=== PATIENT | male | born 1970 | race Hispanic/Latino ===

== ENCOUNTER 2023-07-22 13:33 | Observation (INO) | payer OTHER, SELFPAY ==
[2023-07-22 14:15] LABS: #Eosinphils 0.1 thou/uL (0.0-0.7); #Monocytes 0.3 thou/uL (0.11-0.59); %Basophils 0.6 % (0.0-1.0); %Eosinophils 2.5 % (0.0-10.0); %Monocytes 6.8 % (0.0-10.0); %Neutrophils 62.7 % (42.0-75.0); Hematocrit 44.2 % (42.0-52.0); Hemoglobin 15.7 g/dL (14.0-18.0); Mean Corpuscular HGB CONC 35.5 g/dL (32.0-36.0); Mean Corpuscular Hemoglobin 35.2 pg (27.0-31.0); Mean Corpuscular Volume 99.1 fl (78.0-98.0); Mean Platelet Volume 9.9 fL (7.4-10.4); Platelet Count 217 10x3/uL (130-400); RBC Distribution Width 12.8 % (11.5-14.5); Red Blood Cell (RBC) Count 4.46 mill/uL (4.70-6.10); White Blood Cell (WBC) Count 4.8 10x3/uL (4.8-10.8)
[2023-07-22 14:29] LABS: ALT (SGPT) 53 U/L (8-55); AST (SGOT) 37 U/L (5-34); Albumin 4.5 g/dL (3.5-5.0); Alkaline Phosphatase 85 U/L (40-110); Anion Gap 13 mmol/L (10-20); BUN (Urea Nitrogen) 18 mg/dL (8.4-25.7); Bilirubin, Total 0.7 mg/dL (0.2-1.2); Calc. Creatinine Clearance 0 mL/min (70-130); Calcium 9.8 mg/dL (7.8-10.44); Carbon Dioxide 26 mmol/L (22-29); Chloride 105 mmol/L (98-107); Estimated GFR 70; Globulin 3.2 g/dL (2.4-3.5); Glucose 118 mg/dL (70-105); Potassium 4.4 mmol/L (3.5-5.1); Protein, Total 7.7 g/dL (6.0-8.3); Sodium 140 mmol/L (136-145)
[2023-07-22] MEDS ORDERED: Ketorolac Tromethamine 30 MG (1 mL) VIAL ONE (14:40)
[2023-07-22] MEDS ORDERED: hydrALAZINE 20 MG/ML VIAL SLOW IVP PRN (17:03)
[2023-07-22] MEDS ORDERED: Ondansetron PF 4 MG/2 ML Vial IVP PRN (17:05)
[2023-07-22] MEDS ORDERED: Ondansetron ODT 4 MG TAB PO PRN (17:05)
[2023-07-22] MEDS ORDERED: Enoxaparin 40 MG (0.4 mL) SYRINGE ONE (20:03)
[2023-07-22] MEDS: Enoxaparin 40 MG (0.4 mL) SYRINGE SC SCH (20:12)
[2023-07-22] MEDS ORDERED: cloNIDine 0.1 MG TAB ONE (20:25)
[2023-07-22] MEDS ORDERED: Atorvastatin Calcium 40 MG TAB ONE (20:25)
[2023-07-22] MEDS ORDERED: Famotidine 20 MG TAB ONE (20:25)
[2023-07-22] MEDS ORDERED: Acetaminophen 325 MG TAB ONE (20:25)
[2023-07-22] MEDS: Acetaminophen 325 MG TAB PO PRN (20:32)
[2023-07-22] MEDS: Atorvastatin Calcium 40 MG TAB PO SCH (20:32)
[2023-07-22] MEDS: cloNIDine 0.1 MG TAB PO SCH (20:32)
[2023-07-22] MEDS: Famotidine 20 MG TAB PO SCH (20:33)
[2023-07-22 20:38] VITALS: BMI 29.0
[2023-07-23] MEDS ORDERED: Acetaminophen 325 MG TAB ONE (02:48)
[2023-07-23 04:39] LABS: #Eosinphils 0.1 thou/uL (0.0-0.7); #Monocytes 0.5 thou/uL (0.11-0.59); #Neutrophils 3.4 thou/uL (1.40-6.50); %Basophils 0.5 % (0.0-1.0); %Eosinophils 1.2 % (0.0-10.0); %Lymphocytes 31.2 % (21.0-51.0); %Monocytes 8.7 % (0.0-10.0); %Neutrophils 58.2 % (42.0-75.0); Hematocrit 39.6 % (42.0-52.0); Hemoglobin 13.9 g/dL (14.0-18.0); Mean Corpuscular HGB CONC 35.1 g/dL (32.0-36.0); Mean Corpuscular Hemoglobin 34.6 pg (27.0-31.0); Mean Corpuscular Volume 98.5 fl (78.0-98.0); Mean Platelet Volume 9.9 fL (7.4-10.4); Platelet Count 198 10x3/uL (130-400); RBC Distribution Width 13.1 % (11.5-14.5); Red Blood Cell (RBC) Count 4.02 mill/uL (4.70-6.10); White Blood Cell (WBC) Count 5.9 10x3/uL (4.8-10.8)
[2023-07-23 05:14] LABS: Anion Gap 12 mmol/L (10-20); BUN (Urea Nitrogen) 26 mg/dL (8.4-25.7); Calc. Creatinine Clearance 92 mL/min (70-130); Calcium 9.4 mg/dL (7.8-10.44); Carbon Dioxide 25 mmol/L (22-29); Cardiac Risk 4.6 (Less than 4.5); Chloride 106 mmol/L (98-107); Cholesterol 198 mg/dl (< 200 Desired); Estimated GFR 66; Glucose 106 mg/dL (70-105); HDL Cholesterol 43 mg/dL (>60 Neg Risk); LDL Cholesterol, Calculated 121 mg/dL; Potassium 3.7 mmol/L (3.5-5.1); Sodium 139 mmol/L (136-145); Triglycerides 172 mg/dL (Less than 150)
[2023-07-23] MEDS ORDERED: Morphine 2 MG/ML VIAL ONE (06:43)
[2023-07-23] MEDS: Morphine 2 MG/ML VIAL SLOW IVP SCH (06:50)
[2023-07-23] MEDS ORDERED: Famotidine 20 MG TAB ONE (08:48)
[2023-07-23] MEDS ORDERED: cloNIDine 0.1 MG TAB ONE (08:48)
[2023-07-23] MEDS ORDERED: Aspirin Chewable 81 MG TAB ONE (08:48)
[2023-07-23] MEDS ORDERED: Loratadine 10 MG TAB ONE (08:49)
[2023-07-23] MEDS: Aspirin 81 mg Enteric Coated Tablet PO SCH (08:53)
[2023-07-23] MEDS: Loratadine 10 MG TAB PO SCH (08:53)
[2023-07-23] MEDS ORDERED: Lorazepam 0.5 MG TAB PO SCH (12:00)
[2023-07-23] MEDS: Atorvastatin Calcium 40 MG TAB PO SCH (20:52)
[2023-07-24 07:25] LABS: #Eosinphils 0.2 thou/uL (0.0-0.7); #Monocytes 0.5 thou/uL (0.11-0.59); #Neutrophils 2.7 thou/uL (1.40-6.50); %Basophils 0.4 % (0.0-1.0); %Eosinophils 4.3 % (0.0-10.0); %Lymphocytes 32.3 % (21.0-51.0); %Monocytes 8.9 % (0.0-10.0); %Neutrophils 53.9 % (42.0-75.0); Hematocrit 40.3 % (42.0-52.0); Hemoglobin 14.2 g/dL (14.0-18.0); Mean Corpuscular HGB CONC 35.2 g/dL (32.0-36.0); Mean Corpuscular Hemoglobin 35.1 pg (27.0-31.0); Mean Corpuscular Volume 99.8 fl (78.0-98.0); Platelet Count 189 10x3/uL (130-400); RBC Distribution Width 13.1 % (11.5-14.5); Red Blood Cell (RBC) Count 4.04 mill/uL (4.70-6.10); White Blood Cell (WBC) Count 5.1 10x3/uL (4.8-10.8)
[2023-07-24 08:01] LABS: Anion Gap 13 mmol/L (10-20); BUN (Urea Nitrogen) 21 mg/dL (8.4-25.7); Calc. Creatinine Clearance 91 mL/min (70-130); Calcium 9.3 mg/dL (7.8-10.44); Carbon Dioxide 23 mmol/L (22-29); Chloride 110 mmol/L (98-107); Estimated GFR 66; Glucose 95 mg/dL (70-105); Potassium 3.7 mmol/L (3.5-5.1); Sodium 142 mmol/L (136-145)
[2023-07-24] MEDS: Topiramate 25 MG TAB PO SCH (10:56)
[2023-07-24 12:05] VITALS: BP 132/89; TEMP 98
[2023-07-24] MEDS ORDERED: Topiramate 25 MG TAB PO SCH (21:00)
== END 2023-07-24 18:01 ==
LOC: ERS 13:33 → EEVIPCON 13:33 → EDBD 17:07 → ERHOLD 17:07 → 2SE 07-23 14:37
PROVIDERS: ADMIT Internal Medicine; ATTEND Internal Medicine
DX: R41.82 Altered mental status, unspecified (principal); I16.0 Hypertensive urgency; I10 Essential (primary) hypertension; K21.9 Gastro-esophageal reflux disease without esophagitis; J30.2 Other seasonal allergic rhinitis; Z79.899 Other long term (current) drug therapy; Z87.891 Personal history of nicotine dependence
CPT/HCPCS: 36415; 70450; 80048; 80061; 85025; 93005; 94760; 95711; 95819; 96372; 96375; G0378; J1650; J1885; J2272

== ENCOUNTER 2024-12-21 10:36 | Inpatient (IN) | payer OTHER ==
[2024-12-21] MEDS ORDERED: Senokot S 8.6-50 MG TAB PO PRN (12:47)
[2024-12-21] MEDS ORDERED: Guaifenesin DM 100-10/5 ML UDCUP PO PRN (12:47)
[2024-12-21] MEDS ORDERED: Ondansetron PF 4 MG/2 ML Vial IVP PRN (12:47)
[2024-12-21] MEDS ORDERED: Electrolyte Replacement Protocol 1 EACH FS SCH (13:00)
[2024-12-21] MEDS: Ketorolac Tromethamine 30 MG (1 mL) VIAL IVP PRN (14:48)
[2024-12-21] MEDS: Gabapentin 300 MG CAP PO SCH (14:48)
[2024-12-21] MEDS: Methocarbamol 500 MG TAB PO SCH (14:48)
[2024-12-21 16:31] VITALS: BMI 23.6
[2024-12-22 05:20] LABS: #Basophils Less than 0.03 10x3/uL (0.0-0.2); #Eosinophils 0.18 10x3/uL (0.0-0.7); #Monocytes 0.35 10x3/uL (0.11-0.59); #Neutrophils 3.29 10x3/uL (1.40-6.50); %Basophils 0.4 % (0.0-1.0); %Eosinophils 3.4 % (0.0-10.0); %Lymphocytes 28.0 % (21.0-51.0); %Monocytes 6.5 % (0.0-10.0); %Neutrophils 61.3 % (42.0-75.0); Hematocrit 29.3 % (42.0-52.0); Hemoglobin 9.5 g/dL (14.0-18.0); Mean Corpuscular Hemoglobin 30.1 pg (27.0-31.0); Mean Corpuscular Volume 92.7 fL (78.0-98.0); Platelet Count 434 10x3/uL (130-400); Red Blood Cell (RBC) Count 3.16 mill/uL (4.70-6.10); White Blood Cell (WBC) Count 5.36 10x3/uL (4.8-10.8)
[2024-12-22 05:40] LABS: Anion Gap 14 mmol/L (10-20); BUN (Urea Nitrogen) 7 mg/dL (8.4-25.7); Calc. Creatinine Clearance 144 mL/min (70-130); Calcium 9.0 mg/dL (7.8-10.44); Carbon Dioxide 23 mmol/L (22-29); Chloride 105 mmol/L (98-107); Glucose 84 mg/dL (70-105); Potassium 3.7 mmol/L (3.5-5.1); Sodium 138 mmol/L (136-145)
[2024-12-22] MEDS: Enoxaparin 40 MG (0.4 mL) SYRINGE SC SCH (08:08)
[2024-12-22] MEDS: Magnesium Oxide 400 MG TAB PO SCH ×2 (13:13→20:31)
[2024-12-22 21:01] VITALS: BMI 23.6
[2024-12-22] MEDS: Acetaminophen 325 MG TAB PO PRN (21:43)
[2024-12-23 04:51] LABS: #Basophils 0.03 10x3/uL (0.0-0.2); #Eosinophils 0.15 10x3/uL (0.0-0.7); #Monocytes 0.42 10x3/uL (0.11-0.59); #Neutrophils 3.03 10x3/uL (1.40-6.50); %Basophils 0.6 % (0.0-1.0); %Eosinophils 2.9 % (0.0-10.0); %Lymphocytes 29.7 % (21.0-51.0); %Monocytes 8.1 % (0.0-10.0); %Neutrophils 58.3 % (42.0-75.0); Hematocrit 28.9 % (42.0-52.0); Hemoglobin 9.3 g/dL (14.0-18.0); Mean Corpuscular Hemoglobin 29.9 pg (27.0-31.0); Mean Corpuscular Volume 92.9 fL (78.0-98.0); Platelet Count 377 10x3/uL (130-400); Red Blood Cell (RBC) Count 3.11 mill/uL (4.70-6.10); White Blood Cell (WBC) Count 5.19 10x3/uL (4.8-10.8)
[2024-12-23 05:10] LABS: Anion Gap 10 mmol/L (10-20); BUN (Urea Nitrogen) 11 mg/dL (8.4-25.7); Calc. Creatinine Clearance 132 mL/min (70-130); Calcium 8.5 mg/dL (7.8-10.44); Carbon Dioxide 24 mmol/L (22-29); Chloride 110 mmol/L (98-107); Glucose 114 mg/dL (70-105); Magnesium 2.0 mg/dL (1.6-2.6); Potassium 4.0 mmol/L (3.5-5.1); Sodium 140 mmol/L (136-145)
[2024-12-23] MEDS: Magnesium 2 GM/50 ML(in water) 2 GM in Premix 1 BAG IVPB SCH (08:21)
[2024-12-24] MEDS: Pantoprazole 40 MG DR.TAB PO SCH (09:37)
[2024-12-24] MEDS: Gabapentin 400 MG CAP PO SCH (15:05)
[2024-12-25 06:02] LABS: #Basophils 0.04 10x3/uL (0.0-0.2); #Eosinophils 0.26 10x3/uL (0.0-0.7); #Monocytes 0.45 10x3/uL (0.11-0.59); #Neutrophils 2.84 10x3/uL (1.40-6.50); %Basophils 0.7 % (0.0-1.0); %Eosinophils 4.7 % (0.0-10.0); %Lymphocytes 34.1 % (21.0-51.0); %Monocytes 8.2 % (0.0-10.0); %Neutrophils 51.6 % (42.0-75.0); Hematocrit 32.1 % (42.0-52.0); Hemoglobin 10.1 g/dL (14.0-18.0); Mean Corpuscular Hemoglobin 29.7 pg (27.0-31.0); Mean Corpuscular Volume 94.4 fL (78.0-98.0); Platelet Count 407 10x3/uL (130-400); Red Blood Cell (RBC) Count 3.40 mill/uL (4.70-6.10); White Blood Cell (WBC) Count 5.51 10x3/uL (4.8-10.8)
[2024-12-25 06:07] LABS: Anion Gap 12 mmol/L (10-20); BUN (Urea Nitrogen) 13 mg/dL (8.4-25.7); Calc. Creatinine Clearance 130 mL/min (70-130); Calcium 9.1 mg/dL (7.8-10.44); Carbon Dioxide 24 mmol/L (22-29); Chloride 105 mmol/L (98-107); Glucose 70 mg/dL (70-105); Potassium 4.1 mmol/L (3.5-5.1); Sodium 137 mmol/L (136-145)
[2024-12-25] MEDS: Pantoprazole 40 MG DR.TAB PO SCH (08:15)
[2024-12-25 08:36] VITALS: BP 151/97; TEMP 98.2
== END 2024-12-25 13:40 | disposition home or self-care (01) | DRG 539 ==
LOC: T4-A 12:14 → UNDODISIN 12-22 09:01
PROVIDERS: ADMIT Hospitalist; ATTEND Family Medicine
DX: M46.26 Osteomyelitis of vertebra, lumbar region (principal); K68.12 Psoas muscle abscess; R78.81 Bacteremia; M46.46 Discitis, unspecified, lumbar region; I10 Essential (primary) hypertension; E78.5 Hyperlipidemia, unspecified; K21.9 Gastro-esophageal reflux disease without esophagitis; N40.0 Benign prostatic hyperplasia without lower urinary tract symptoms; D63.8 Anemia in other chronic diseases classified elsewhere; J30.2 Other seasonal allergic rhinitis; G43.909 Migraine, unspecified, not intractable, without status migrainosus; F15.10 Other stimulant abuse, uncomplicated; M62.838 Other muscle spasm; M48.061 Spinal stenosis, lumbar region without neurogenic claudication; B95.62 Methicillin resistant Staphylococcus aureus infection as the cause of diseases classified elsewhere; Z91.199 Patient's noncompliance with other medical treatment and regimen due to unspecified reason
CPT/HCPCS: 36415; 72158; 80048; 83735; 85025; 97139; J0878; J1650; J1885; J2060; J3475; J7030

== ENCOUNTER 2025-01-10 19:27 | Inpatient (IN) | payer OTHER ==
[2025-01-11 01:44] VITALS: BMI 23.4
[2025-01-11] MEDS ORDERED: Acetaminophen 325 MG TAB PO PRN (03:20)
[2025-01-11 04:44] LABS: #Basophils Less than 0.03 10x3/uL (0.0-0.2); #Eosinophils 0.15 10x3/uL (0.0-0.7); #Monocytes 0.54 10x3/uL (0.11-0.59); #Neutrophils 9.55 10x3/uL (1.40-6.50); %Basophils 0.2 % (0.0-1.0); %Eosinophils 1.3 % (0.0-10.0); %Lymphocytes 8.4 % (21.0-51.0); %Monocytes 4.8 % (0.0-10.0); %Neutrophils 84.7 % (42.0-75.0); Hematocrit 35.6 % (42.0-52.0); Hemoglobin 11.0 g/dL (14.0-18.0); Mean Corpuscular Hemoglobin 29.3 pg (27.0-31.0); Mean Corpuscular Volume 94.7 fL (78.0-98.0); Platelet Count 365 10x3/uL (130-400); Red Blood Cell (RBC) Count 3.76 mill/uL (4.70-6.10); White Blood Cell (WBC) Count 11.28 10x3/uL (4.8-10.8)
[2025-01-11 05:08] LABS: Anion Gap 15 mmol/L (10-20); BUN (Urea Nitrogen) 19 mg/dL (8.4-25.7); Calc. Creatinine Clearance 110 mL/min (70-130); Calcium 9.6 mg/dL (7.8-10.44); Carbon Dioxide 23 mmol/L (22-29); Chloride 101 mmol/L (98-107); Glucose 92 mg/dL (70-105); Potassium 4.4 mmol/L (3.5-5.1); Sodium 135 mmol/L (136-145)
[2025-01-11] MEDS: Ketorolac Tromethamine 30 MG (1 mL) VIAL IVP SCH (05:24)
[2025-01-11] MEDS: VANCOMYCIN 2 GRAM/400 ML Premix BAG IVPB SCH (07:15)
[2025-01-11] MEDS: Enoxaparin 40 MG (0.4 mL) SYRINGE SC SCH (08:28)
[2025-01-11] MEDS: Methocarbamol 500 MG TAB PO SCH (08:28)
[2025-01-11] MEDS ORDERED: Gabapentin 100 MG CAP PO SCH (09:00)
[2025-01-11] MEDS: Gabapentin 400 MG CAP PO SCH (12:23)
[2025-01-11] MEDS: PNEUMOC 20-VAL CONJ-DIP CRM/PF 0.5 ML SYRINGE IM ONE (12:23)
[2025-01-11] MEDS ORDERED: Vancomycin 1 GM in Premix 1 BAG IVPB SCH (18:00)
[2025-01-11] MEDS: Vancomycin 1.25 GM / NS 250 ML VIAL-2-BAG IVPB SCH (21:31)
[2025-01-12 05:51] LABS: Calc. Creatinine Clearance 98.0 mL/min (70-130)
[2025-01-12 05:55] LABS: Vancomycin, Random 20.7 ug/mL (See Comment)
[2025-01-12] MEDS: Gabapentin 300 MG CAP PO SCH (15:54)
[2025-01-12] MEDS: HYDROcodone/Acetaminophen 10/325 mg Tablet PO PRN (22:08)
[2025-01-13] MEDS: Vancomycin 1 GM in Premix 1 BAG IVPB SCH (00:01)
[2025-01-13 07:06] LABS: #Basophils Less than 0.03 10x3/uL (0.0-0.2); #Eosinophils 0.27 10x3/uL (0.0-0.7); #Monocytes 0.47 10x3/uL (0.11-0.59); #Neutrophils 3.70 10x3/uL (1.40-6.50); %Basophils 0.2 % (0.0-1.0); %Eosinophils 4.9 % (0.0-10.0); %Lymphocytes 19.2 % (21.0-51.0); %Monocytes 8.5 % (0.0-10.0); %Neutrophils 66.5 % (42.0-75.0); Hematocrit 29.8 % (42.0-52.0); Hemoglobin 9.4 g/dL (14.0-18.0); Mean Corpuscular Hemoglobin 29.0 pg (27.0-31.0); Mean Corpuscular Volume 92.0 fL (78.0-98.0); Platelet Count 309 10x3/uL (130-400); Red Blood Cell (RBC) Count 3.24 mill/uL (4.70-6.10); White Blood Cell (WBC) Count 5.56 10x3/uL (4.8-10.8)
[2025-01-13 07:19] LABS: ALT (SGPT) 13 U/L (Less than 45); AST (SGOT) 19 U/L (11-34); Albumin 2.4 g/dL (3.1-4.5); Alkaline Phosphatase 126 U/L (40-110); Anion Gap 15 mmol/L (10-20); BUN (Urea Nitrogen) 11 mg/dL (8.4-25.7); Bilirubin, Total 0.2 mg/dL (0.3-1.2); Calc. Creatinine Clearance 131 mL/min (70-130); Calcium 8.7 mg/dL (7.8-10.44); Carbon Dioxide 21 mmol/L (22-29); Chloride 107 mmol/L (98-107); Globulin 3.9 g/dL (2.4-3.5); Glucose 110 mg/dL (70-105); Potassium 4.1 mmol/L (3.5-5.1); Sodium 139 mmol/L (136-145)
[2025-01-14 06:13] LABS: #Basophils Less than 0.03 10x3/uL (0.0-0.2); #Eosinophils 0.32 10x3/uL (0.0-0.7); #Monocytes 0.43 10x3/uL (0.11-0.59); #Neutrophils 3.94 10x3/uL (1.40-6.50); %Basophils 0.3 % (0.0-1.0); %Eosinophils 5.4 % (0.0-10.0); %Lymphocytes 19.6 % (21.0-51.0); %Monocytes 7.3 % (0.0-10.0); %Neutrophils 66.6 % (42.0-75.0); Hematocrit 28.2 % (42.0-52.0); Hemoglobin 8.9 g/dL (14.0-18.0); Mean Corpuscular Hemoglobin 29.0 pg (27.0-31.0); Mean Corpuscular Volume 91.9 fL (78.0-98.0); Platelet Count 358 10x3/uL (130-400); Red Blood Cell (RBC) Count 3.07 mill/uL (4.70-6.10); White Blood Cell (WBC) Count 5.92 10x3/uL (4.8-10.8)
[2025-01-14 06:24] LABS: Anion Gap 12 mmol/L (10-20); BUN (Urea Nitrogen) 10 mg/dL (8.4-25.7); Calc. Creatinine Clearance 134 mL/min (70-130); Calcium 9.3 mg/dL (7.8-10.44); Carbon Dioxide 23 mmol/L (22-29); Chloride 106 mmol/L (98-107); Glucose 125 mg/dL (70-105); Potassium 3.6 mmol/L (3.5-5.1); Sodium 137 mmol/L (136-145)
[2025-01-14 06:25] LABS: CRP, High Sensitivity at Bryan 14.04 mg/dL (< or = 0.5)
[2025-01-15 05:47] LABS: #Basophils Less than 0.03 10x3/uL (0.0-0.2); #Eosinophils 0.40 10x3/uL (0.0-0.7); #Monocytes 0.52 10x3/uL (0.11-0.59); #Neutrophils 4.33 10x3/uL (1.40-6.50); %Basophils 0.3 % (0.0-1.0); %Eosinophils 6.2 % (0.0-10.0); %Lymphocytes 16.3 % (21.0-51.0); %Monocytes 8.1 % (0.0-10.0); %Neutrophils 67.1 % (42.0-75.0); Hematocrit 32.8 % (42.0-52.0); Hemoglobin 10.2 g/dL (14.0-18.0); Mean Corpuscular Hemoglobin 28.8 pg (27.0-31.0); Mean Corpuscular Volume 92.7 fL (78.0-98.0); Platelet Count 369 10x3/uL (130-400); Red Blood Cell (RBC) Count 3.54 mill/uL (4.70-6.10); White Blood Cell (WBC) Count 6.45 10x3/uL (4.8-10.8)
[2025-01-15] MEDS: Ibuprofen 600 MG TAB PO SCH (06:01)
[2025-01-15 06:05] LABS: Vancomycin, Random 20.2 ug/mL (See Comment)
[2025-01-15 06:06] LABS: Anion Gap 11 mmol/L (10-20); BUN (Urea Nitrogen) 10 mg/dL (8.4-25.7); Calc. Creatinine Clearance 116 mL/min (70-130); Calcium 9.3 mg/dL (7.8-10.44); Carbon Dioxide 25 mmol/L (22-29); Chloride 106 mmol/L (98-107); Glucose 107 mg/dL (70-105); Potassium 3.9 mmol/L (3.5-5.1); Sodium 138 mmol/L (136-145)
[2025-01-15] MEDS: Pantoprazole 40 MG DR.TAB PO SCH (09:25)
[2025-01-15] MEDS ORDERED: Iopamidol 370 76% 100 ML VIAL ONE (10:13)
[2025-01-15] MEDS ORDERED: Lidocaine 1% PF 5 ML VIAL ONE ×2 (13:21→14:31)
[2025-01-15] MEDS ORDERED: Sodium Bicarbonate 2.5 MEQ/5 ML SDV ONE (13:21)
[2025-01-16] MEDS: Vancomycin 1 GM in Premix 1 BAG IVPB SCH (19:40)
[2025-01-17] MEDS ORDERED: Simethicone Chewable 80 MG TAB PO SCH (06:00)
[2025-01-17] MEDS ORDERED: VANCOMYCIN IVPB SCH (09:00)
[2025-01-17] MEDS: Ibuprofen 200 MG TAB PO SCH (10:56)
[2025-01-17] MEDS: Transdermal Patch Removal TOP SCH (21:45)
[2025-01-17 23:22] VITALS: BMI 23.4
[2025-01-18 06:23] LABS: #Basophils 0.05 10x3/uL (0.0-0.2); #Eosinophils 0.41 10x3/uL (0.0-0.7); #Monocytes 0.39 10x3/uL (0.11-0.59); #Neutrophils 3.29 10x3/uL (1.40-6.50); %Basophils 0.9 % (0.0-1.0); %Eosinophils 7.1 % (0.0-10.0); %Lymphocytes 24.7 % (21.0-51.0); %Monocytes 6.7 % (0.0-10.0); %Neutrophils 56.8 % (42.0-75.0); Hematocrit 32.0 % (42.0-52.0); Hemoglobin 9.7 g/dL (14.0-18.0); Mean Corpuscular Hemoglobin 28.4 pg (27.0-31.0); Mean Corpuscular Volume 93.8 fL (78.0-98.0); Platelet Count 477 10x3/uL (130-400); Red Blood Cell (RBC) Count 3.41 mill/uL (4.70-6.10); White Blood Cell (WBC) Count 5.79 10x3/uL (4.8-10.8)
[2025-01-18 06:39] LABS: Vancomycin, Random 21.5 ug/mL (See Comment)
[2025-01-18 06:43] LABS: Anion Gap 12 mmol/L (10-20); BUN (Urea Nitrogen) 16 mg/dL (8.4-25.7); Calc. Creatinine Clearance 120 mL/min (70-130); Calcium 8.6 mg/dL (7.8-10.44); Carbon Dioxide 26 mmol/L (22-29); Chloride 108 mmol/L (98-107); Glucose 92 mg/dL (70-105); Potassium 3.5 mmol/L (3.5-5.1); Sodium 142 mmol/L (136-145)
[2025-01-18] MEDS ORDERED: Iopamidol 370 76% 100 ML VIAL ONE (09:56)
[2025-01-18] MEDS: Ibuprofen 200 MG TAB PO SCH (10:57)
[2025-01-19] MEDS: Ibuprofen 200 MG TAB PO SCH (10:21)
[2025-01-20] MEDS: Ibuprofen 600 MG TAB PO PRN (11:01)
[2025-01-21 06:29] LABS: #Basophils Less than 0.03 10x3/uL (0.0-0.2); #Eosinophils 0.30 10x3/uL (0.0-0.7); #Monocytes 0.26 10x3/uL (0.11-0.59); #Neutrophils 1.93 10x3/uL (1.40-6.50); %Basophils 0.5 % (0.0-1.0); %Eosinophils 7.8 % (0.0-10.0); %Lymphocytes 33.2 % (21.0-51.0); %Monocytes 6.8 % (0.0-10.0); %Neutrophils 50.1 % (42.0-75.0); Hematocrit 31.2 % (42.0-52.0); Hemoglobin 9.4 g/dL (14.0-18.0); Mean Corpuscular Hemoglobin 28.5 pg (27.0-31.0); Mean Corpuscular Volume 94.5 fL (78.0-98.0); Platelet Count 406 10x3/uL (130-400); Red Blood Cell (RBC) Count 3.30 mill/uL (4.70-6.10); White Blood Cell (WBC) Count 3.85 10x3/uL (4.8-10.8)
[2025-01-21 06:50] LABS: ALT (SGPT) 7 U/L (Less than 45); AST (SGOT) 16 U/L (11-34); Albumin 2.4 g/dL (3.1-4.5); Alkaline Phosphatase 110 U/L (40-110); Anion Gap 13 mmol/L (10-20); BUN (Urea Nitrogen) 15 mg/dL (8.4-25.7); Bilirubin, Total 0.1 mg/dL (0.3-1.2); Calc. Creatinine Clearance 129 mL/min (70-130); Calcium 8.7 mg/dL (7.8-10.44); Carbon Dioxide 22 mmol/L (22-29); Chloride 110 mmol/L (98-107); Globulin 3.7 g/dL (2.4-3.5); Glucose 104 mg/dL (70-105); Potassium 4.0 mmol/L (3.5-5.1); Sodium 141 mmol/L (136-145)
[2025-01-23 06:20] LABS: #Basophils Less than 0.03 10x3/uL (0.0-0.2); #Eosinophils 0.35 10x3/uL (0.0-0.7); #Monocytes 0.34 10x3/uL (0.11-0.59); #Neutrophils 3.52 10x3/uL (1.40-6.50); %Basophils 0.4 % (0.0-1.0); %Eosinophils 6.6 % (0.0-10.0); %Lymphocytes 19.5 % (21.0-51.0); %Monocytes 6.4 % (0.0-10.0); %Neutrophils 66.5 % (42.0-75.0); Hematocrit 30.2 % (42.0-52.0); Hemoglobin 9.3 g/dL (14.0-18.0); Mean Corpuscular Hemoglobin 28.7 pg (27.0-31.0); Mean Corpuscular Volume 93.2 fL (78.0-98.0); Platelet Count 375 10x3/uL (130-400); Red Blood Cell (RBC) Count 3.24 mill/uL (4.70-6.10); White Blood Cell (WBC) Count 5.29 10x3/uL (4.8-10.8)
[2025-01-23 07:19] LABS: Anion Gap 13 mmol/L (10-20); BUN (Urea Nitrogen) 14 mg/dL (8.4-25.7); Calc. Creatinine Clearance 124 mL/min (70-130); Calcium 8.6 mg/dL (7.8-10.44); Carbon Dioxide 25 mmol/L (22-29); Chloride 109 mmol/L (98-107); Glucose 93 mg/dL (70-105); Potassium 3.8 mmol/L (3.5-5.1); Sodium 143 mmol/L (136-145)
[2025-01-23 07:28] LABS: Vancomycin, Random 20.4 ug/mL (See Comment)
[2025-01-23] MEDS: Ibuprofen 600 MG TAB PO PRN (12:14)
[2025-01-24 08:33] LABS: Anion Gap 14 mmol/L (10-20); BUN (Urea Nitrogen) 12 mg/dL (8.4-25.7); Calc. Creatinine Clearance 127 mL/min (70-130); Calcium 9.0 mg/dL (7.8-10.44); Carbon Dioxide 22 mmol/L (22-29); Chloride 108 mmol/L (98-107); Glucose 91 mg/dL (70-105); Potassium 4.3 mmol/L (3.5-5.1); Sodium 140 mmol/L (136-145)
[2025-01-24 09:30] LABS: #Basophils 0.03 10x3/uL (0.0-0.2); #Eosinophils 0.35 10x3/uL (0.0-0.7); #Monocytes 0.28 10x3/uL (0.11-0.59); #Neutrophils 3.90 10x3/uL (1.40-6.50); %Basophils 0.5 % (0.0-1.0); %Eosinophils 6.3 % (0.0-10.0); %Lymphocytes 17.7 % (21.0-51.0); %Monocytes 5.0 % (0.0-10.0); %Neutrophils 70.0 % (42.0-75.0); Hematocrit 32.8 % (42.0-52.0); Hemoglobin 10.1 g/dL (14.0-18.0); Mean Corpuscular Hemoglobin 28.9 pg (27.0-31.0); Mean Corpuscular Volume 93.7 fL (78.0-98.0); Platelet Count 381 10x3/uL (130-400); Red Blood Cell (RBC) Count 3.50 mill/uL (4.70-6.10); White Blood Cell (WBC) Count 5.58 10x3/uL (4.8-10.8)
[2025-01-25 06:11] LABS: Anion Gap 9 mmol/L (10-20); BUN (Urea Nitrogen) 18 mg/dL (8.4-25.7); Calc. Creatinine Clearance 103 mL/min (70-130); Calcium 8.6 mg/dL (7.8-10.44); Carbon Dioxide 25 mmol/L (22-29); Chloride 110 mmol/L (98-107); Glucose 97 mg/dL (70-105); Potassium 3.8 mmol/L (3.5-5.1); Sodium 140 mmol/L (136-145)
[2025-01-25 08:46] VITALS: BP 112/69; TEMP 98.1
[2025-01-25] MEDS ORDERED: Sodium Bicarbonate 2.5 MEQ/5 ML SDV ONE (10:53)
[2025-01-25] MEDS ORDERED: Lidocaine 1% PF 5 ML VIAL ONE (10:53)
[2025-01-25] MEDS ORDERED: Lidocaine 1% w/Epinephrine 1:100K 20 ML VIAL ONE (11:17)
[2025-01-25] MEDS ORDERED: Vancomycin 1 GM in Premix 1 BAG IVPB SCH (21:00)
== END 2025-01-25 14:35 | DRG 871 ==
LOC: 2NO 01-11 01:15 → T4-A 01-11 20:54
PROVIDERS: ADMIT Internal Medicine; ATTEND Internal Medicine
PROC: 3E03329 Introduction of Other Anti-infective into Peripheral Vein, Percutaneous Approach (ICD-10-PCS; 2025-01-11)
PROC: 0K9P3ZZ Drainage of Left Hip Muscle, Percutaneous Approach (ICD-10-PCS; principal; 2025-01-15)
PROC: 02HV33Z Insertion of Infusion Device into Superior Vena Cava, Percutaneous Approach (ICD-10-PCS; 2025-01-25)
PROC: B5181ZA Fluoroscopy of Superior Vena Cava using Low Osmolar Contrast, Guidance (ICD-10-PCS; 2025-01-25)
PROC: 3E04329 Introduction of Other Anti-infective into Central Vein, Percutaneous Approach (ICD-10-PCS; 2025-01-25)
DX: A41.02 Sepsis due to Methicillin resistant Staphylococcus aureus (principal); K68.12 Psoas muscle abscess; M46.26 Osteomyelitis of vertebra, lumbar region; C85.90 Non-Hodgkin lymphoma, unspecified, unspecified site; E87.20 Acidosis, unspecified; M46.46 Discitis, unspecified, lumbar region; I10 Essential (primary) hypertension; F15.90 Other stimulant use, unspecified, uncomplicated; G40.909 Epilepsy, unspecified, not intractable, without status epilepticus; M48.061 Spinal stenosis, lumbar region without neurogenic claudication; K59.00 Constipation, unspecified; M46.56 Other infective spondylopathies, lumbar region; F17.210 Nicotine dependence, cigarettes, uncomplicated; Z98.890 Other specified postprocedural states; Z79.899 Other long term (current) drug therapy; Z86.14 Personal history of Methicillin resistant Staphylococcus aureus infection; Z91.148 Patient's other noncompliance with medication regimen for other reason; Z87.442 Personal history of urinary calculi
CPT/HCPCS: 36415; 36416; 36573; 49406; 72146; 72148; 74178; 77002; 80048; 80053; 80202; 82565; 84145; 85025; 86141; 87040; 87070; 87077; 87186; 87205; 97139; C1729; C1751; C1769; J0692; J0712; J1650; J1885; J2060; J2250; J2270; J3010; J3373; J3375; J7030; J7050; Q9967